=== PATIENT | female | born 1985 | race Caucasian/White ===

== ENCOUNTER 2020-11-21 18:47 | Emergency (ER) | payer OTHER ==
[~2020-11-21 18:47] MED LIST: CEFDINIR300 MG PO; CEFTIN250 MG PO; MACROBID100 MG PO; PREDNISONE 20MG20 MG PO; ZOLOFT50 M1 PO; ZOLOFT50 MG PO
[2020-11-21 20:56] LABS: BASOPHIL 0.4 % (0-2); EOSINOPHIL 1.9 % (0-5); HCT 40.9 % (37.0-47.0); HGB 13.3 g/dl (12.5-16.0); LYMPHOCYTE 26.2 % (15-48); MCH 31.2 pg (25.0-31.0); MCHC 32.5 g/dL (32.0-36.0); MPV 9.1 fL (6.0-9.5); NEUTROPHIL 63.4 % (41-80); NRBC 0; PLT 274 K/uL (150-400); RBC 4.26 M/uL (4.20-5.40); RDW 12.8 % (11.5-14.0)
[2020-11-21 21:00] LABS: BILIRUBIN NEGATIVE (NEGATIVE); BLOOD 2+ Ery/uL (NEGATIVE); CLARITY CLEAR (CLEAR); COLOR YELLOW (YELLOW); GLUCOSE (U) NORMAL (NORMAL); LEUKOCYTES NEGATIVE Leu/uL (NEGATIVE); NITRITE NEGATIVE (NEGATIVE); PROTEIN NEGATIVE (NEGATIVE); UROBILINOGEN 0.2 mg/dL (0.2-1.0)
[2020-11-21 21:05] LABS: BACTERIA TRACE; SQUAMOUS EPITHELIAL CELLS RARE
[2020-11-21 21:14] LABS: ALBUMIN 3.5 g/dL (3.4-5.0); BILIRUBIN - TOTAL 0.4 mg/dL (0.2-1.0); BUN/CREAT RATIO (CALC) 13.5 RATIO; CREATININE 0.89 mg/dL (0.51-0.95); GLOBULIN (CALCULATION) 3.9 g/dL; POTASSIUM 3.9 mmol/L (3.5-5.1); TOTAL PROTEIN 7.4 g/dL (6.4-8.2)
[2020-11-21] MEDS ORDERED: IBUPROFEN800 MG PO (22:57)
== END 2020-11-21 23:23 | disposition home or self-care (01) ==
LOC: FER 18:47
PROVIDERS: Emergency Medicine Emergency Medical Services
DX: M79.10 Myalgia, unspecified site (principal); T50.B95A Adverse effect of other viral vaccines, initial encounter; J45.909 Unspecified asthma, uncomplicated; Z20.822 Contact with and (suspected) exposure to COVID-19
CPT/HCPCS: 36415; 80053; 81001; 85025; J1885; J2405; J7030; U0002

== ENCOUNTER 2021-03-25 15:02 | Emergency (ER) | payer OTHER ==
[~2021-03-25 15:02] MED LIST changes: +IBUPROFEN800 MG PO
[2021-03-25] MEDS ORDERED: CYCLOBENZAPRINE10 MG PO (19:08)
[2021-03-25] MEDS ORDERED: PREDNISONE 20MG20 MG PO (19:08)
== END 2021-03-25 19:38 | disposition home or self-care (01) ==
LOC: FER 15:02
DX: S23.3XXA Sprain of ligaments of thoracic spine, initial encounter (principal); S00.93XA Contusion of unspecified part of head, initial encounter; V42.5XXA Car driver injured in collision with two- or three-wheeled motor vehicle in traffic accident, initial encounter; Y92.410 Unspecified street and highway as the place of occurrence of the external cause
CPT/HCPCS: 70450; 71045; 72125; 72128; 96372; J1100; J1885

== ENCOUNTER 2022-04-02 15:28 | Emergency (ER) | payer OTHER ==
[~2022-04-02 15:28] MED LIST changes: +CYCLOBENZAPRINE10 MG PO
== END 2022-04-02 17:48 | disposition home or self-care (01) ==
LOC: FER 15:28
DX: S93.601A Unspecified sprain of right foot, initial encounter (principal); J45.909 Unspecified asthma, uncomplicated; Z91.018 Allergy to other foods; X50.1XXA Overexertion from prolonged static or awkward postures, initial encounter
CPT/HCPCS: 73630